=== PATIENT | male | born 1995 | race Hispanic/Latino ===

== ENCOUNTER 2025-06-25 17:40 | Emergency (ER) | payer SELFPAY ==
[~2025-06-25] VITALS: Ht 167.6 cm; Wt 59.9 kg
[2025-06-25 17:57] VITALS: BP 140/72; PULSE 70; RESP 16; TEMP 98; O2SAT 98
--- NOTE | 2025-06-25 18:03 | ERN ---
General Chief Complaint: Tooth Ache/Pain Stated Complaint: TOOTH ACHE Time Seen by MD: 17:42 Time Seen by Midlevel: 17:42 Source: patient History of Present Illness Initial Comments The patient is a 30-year-old male presenting to the emergency department with dental pain to his left lower molar. The patient states he had a cracked tooth for proximally one month however over the last couple of days he has developed an increase in pain and swelling to the area. He has not seen a dentist for this issue recently but is here for pain control. Allergies: Coded Allergies: No Known Drug Allergies (Unverified Allergy, Unknown, 06/25/25) Past Medical History Past Medical History: No Pertinent History Past Surgical History: None ROS Dictation CONSTITUTIONAL: Negative except for HPI HEAD/FACE: Negative except for HPI EENT: Negative except for HPI RESPIRATORY: Negative except for HPI GASTROINTESTINAL/ABDOMINAL: Negative except for HPI GENITOURINARY: Negative except for HPI MUSCULOSKELETAL: Negative except for HPI INTEGUMENTARY: Negative except for HPI NEUROLOGICAL/PSYCH: Negative except for HPI HEMATOLOGIC/LYMPHATIC: Negative except for HPI All Systems Negative, Except as noted above. 13 point review of systems assessed and all negative except for above. Physical Exam Physical Exam Dictation PHYSICAL EXAM: GENERAL: alert,, awake oriented x 3 HEENT: Multiple dental caries, poor dentition, gingival swelling surrounding the left lower molar NECK: Supple, no JVD, trachea midline LUNGS: Clear breath sounds bilaterally. No wheezes HEART: Regular rate and rhythm. Normal S1 and S2, without murmurs ABD: Abdomen soft, nontender. Bowel sounds present EXT: No clubbing or cyanosis, NEURO: Alert and oriented to person, follows commands MDM MDM: Differential diagnosis: Poor dentition, multiple caries, dental abscess There are no social concerns with this patient. Prescription drug management Prescriptions will include: Augmentin and ketorolac Medical management and examination interpretation discussions were had by me with other qualified healthcare professionals as indicated for the patient's care. ED Course Orders Procedure Category Date Status Time Ketorolac [facility] 06/25/25 Complete Tromethamine 30mg/Ml 18:00 Ceftriaxone 1g Vial [facility] 06/25/25 Complete (Rocephine 1g Inj) 18:00 Dexamethasone 4mg/Ml [facility] 06/25/25 Complete 1ml Vial (Dexametha 18:00 Current Medications Medications (Trade) Dose Ordered Sig/Amalia Route PRN Reason Start Time Stop Time Status Last Admin Dose Admin Ceftriaxone Sodium (ROCEphine 1G INJ) 1 gm ONCE ONCE IM 06/25/25 18:00 06/25/25 18:01 DC Dexamethasone Sodium Phosphate (dexaMETHasone 4MG/ML 1ML VIAL) 4 mg ONCE ONCE IM 06/25/25 18:00 06/25/25 18:01 DC Ketorolac Tromethamine (toRADol) 30 mg ONCE ONCE IM 06/25/25 18:00 06/25/25 18:01 DC Vital Signs Date Time Temp Pulse Resp B/P (MAP) Pulse Ox O2 Delivery O2 Flow Rate FiO2 06/25/25 17:57 98.1 70 16 140/72 98 Room Air* 0 21 06/25/25 17:42 98.1 72 18 141/74 98 Room Air 0 DX & DISP Disposition: Discharge Departure Impression: Primary Impression: Pain, dental Additional Impression: Dental abscess Condition: Stable Scripts Amoxicillin/Potassium Clav (Amox Tr-K Clv 875-125 mg Tab) 875 Mg-125 Mg Tablet 1 EACH PO BID for 7 Days, #14 TAB 0 Refills Prov: ANGELINE MEJIA 06/25/25 Ketorolac Tromethamine (Ketorolac Tromethamine) 10 Mg Tablet 1 TAB PO TID for pain for 5 Days, #15 TAB 0 Refills Prov: ANGELINE MEJIA 06/25/25 Additional Instructions: You need to follow up with your dentist. Take your antibiotics as prescribed. Referrals: SELF,REFERRAL (PCP) Time of Disposition: 17:56 I have reviewed the case, and I agree with, Diagnosis and Plan I performed the substantive portion of the visit. I have reviewed and personally made and approve the management plan that is documented in the note by myself or the SAUNDRA. I acknowledge for responsibility for the patient's management plan. ANGELINE MEJIA Jun 25, 2025 18:03
[2025-06-25] MEDS ORDERED: AMOX1TAB16 PO (18:07)
[2025-06-25] MEDS ORDERED: KETO10TA2 PO (18:07)
== END 2025-06-25 18:25 | disposition home or self-care (01) ==
LOC: EDH 17:40
DX: K08.89 Other specified disorders of teeth and supporting structures (principal); K04.7 Periapical abscess without sinus
CPT/HCPCS: 99284; 96372 ×3; J1885; J1100; J0696